=== PATIENT | female | born 1955 | race Caucasian/White ===

== ENCOUNTER → 2018-01-12 15:30 | Outpatient (CLI) | payer BC, SELFPAY ==
--- NOTE | 2018-01-12 15:30 | EMB_PTH ---
PATIENT: APARNA JASSO LOC: [facility] U#:[id number] AGE/SX: 69/F ROOM: RE01/12/[address]: Dr. Yves Soler MD : 1955 BED: DIS: SPEC #: [id number] RECD: 01/12/18 18:01 STATUS: PAULA CAIT #: [id number] DEX: 01/12/18 15:[address]: Yves Soler DEPT: SURGICAL PATHOLOGY RECD BY: Saulo Gotti ENTERED: 01/13/18 11:41 SP TYPE: ENDOM BX/C OTHR DR: Dr. Naveed Stokes MD Tissues: A - Endometrium, NOS B - Uterine cervix, NOS Procedures: Surgery Specimen Level IV HEADER OPERATION: Endometrial biopsy, cervical polyp removal PRE-OP DIAGNOSIS: Post menopausal bleeding TISSUE SUBMITTED: A - Endometrial biopsy, B - Cervical polyp MICROSCOPIC DIAGNOSIS A. Endometrial biopsy: Focal simple endometrial hyperplasia without atypia. B. Cervical polyp, biopsy: Fragments of benign inflamed endocervical polyp, blood and mucous. QUIN:piyush 01/14/18 MICROSCOPIC DESCRIPTION Slides are reviewed. GROSS DESCRIPTION A - Received in fixative is one container labeled with the patient's name and designated EM biopsy. The specimen consists of multiple fragments of hemorrhagic soft tissue mixed with mucoid tissue that in aggregate measure 3 x 2.5 x 0.3 cm. The specimen is totally submitted in one cassette. B - Received in fixative is one container labeled with the patient's name and designated cervical polyp. The specimen consists of a piece of polypoid tissue mixed with lindo mucoid tissue measuring in aggregate 3 x 2.5 x 0.3 cm. The specimen is totally submitted in one cassette. / QUIN:piyush 01/13/18 TC:5 CPT: 15448 x2
== END ==
PROVIDERS: Family Provider Family Medicine; PCP Family Medicine; Referring Provider Obstetrics & Gynecology; Visit Provider Obstetrics & Gynecology
DX: N84.1 Polyp of cervix uteri (principal)
CPT/HCPCS: 88305

== ENCOUNTER 2018-03-23 05:42 | Day surgery (SDC) | payer BC, SELFPAY ==
--- NOTE | 2018-03-16 15:29 | EKG12_ITS ---
Test Reason : PRE OP Blood Pressure : / mmHG Vent. Rate : 069 BPM Atrial Rate : 069 BPM P-R Int : 160 ms QRS Dur : 068 ms QT Int : 382 ms P-R-T Axes : 034 049 039 degrees QTc Int : 409 ms Normal sinus rhythm Low voltage QRS Borderline ECG Confirmed by KRISTYN DUNLAP, BROOKLYNN ([id number]), medical transcription editor RADHA WELDON ([id number]) on 03/18/2018 1:52:48 PM Referred By: Yves Soler Confirmed By:BROOKLYNN SIMONS MD
[2018-03-16 17:08] LABS: Absolute Lymphocyte Count 1.97 X10^3/ul (0.83-4.51); Absolute Neutrophil Count 5.9 X10^3/uL (2.0-7.7); Basophil# 0.02 X10^3/uL; Basophil% 0.2 % (0-1); Eosinophil# 0.17 X10^3/uL; Hematocrit 42.4 % (37-47); Hemoglobin 13.8 g/dl (12.0-15.0); Lymphocyte # 1.97 X10^3/ul (4.0); Lymphocyte % 22.9 % (19-41); Mean Corp Hgb Conc 32.5 g/gl (32-36); Mean Corpuscular Volume 98.4 fL (81-99); Mean Platelet Vol. 9.1 fl (6.2-12.0); Monocyte# 0.52 X10^3/uL; Monocyte% 6.1 % (0-10); Neutrophil # 5.88 X10^3/uL (2.7-7.7); Neutrophil % 68.5 % (47-70); Platelet Count 358 K/mm3 (150-450); RBC Distribution Width CV 14.1 % (11.6-14.6); RBC Distribution Width SD 49.1 fl (35.1-43.9); Red Blood Count 4.31 M/mm3 (4.2-5.4); White Blood Count 8.6 K/mm3 (4.4-11.0)
[2018-03-16 17:13] LABS: POSITIVE COUNT NO; POSITIVE DIFFERENTIAL NO; POSITIVE MORPHOLOGY NO
[2018-03-16 17:27] LABS: Prothrombin Time (Protime)PT. 13.1 SECONDS (11.7-14.9)
[2018-03-16 17:28] LABS: Partial Thromboplast Time 34.3 Seconds (24.1-36.2)
[2018-03-16 17:48] LABS: ALB/GLOB Ratio 0.8 RATIO (0.9-2.4); AST(SGOT) 19 U/L (15-37); Alanine Aminotransfer ALT/SGPT 22 U/L (13-56); Albumin, Serum 3.1 g/dL (3.2-5.0); Alkaline Phosphatase 104 U/L (45-117); Anion Gap 7 (5-15); BUN 13 mg/dL (7-18); BUN/Creat Ratio 20.9 RATIO (10-20); Calcium,Total 8.9 mg/dL (8.5-10.1); Chloride 105 mmol/L (98-107); Creatinine, Serum 0.62 mg/dL (0.55-1.02); EST Glomerular Filtration Rate 102 mL/min (>60); Est Glom Filt Rate - Afr Amer 124 mL/min (>60); Glucose 90 mg/dL (74-106); Potassium 4.2 mmol/L (3.5-5.1); Protein, Total 7.1 g/dL (6.4-8.2); Sodium Level 141 mmol/L (136-145)
--- NOTE | 2018-03-22 19:24 | PCM.HP.BLA ---
History and Physical Date of Admission: 03/23/18 Surgical History and Physical Rosio Morales, a 62 year old female 5 0 0 0 5, presents for RAVH/BSO on March 23, 2018 at 8:30. 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 RA Stokes for PMB. 62 y.o. G 5 P 5 post-menopausal sexually inactive female reporting that she has been having problems with spotting periodically x 2 years and upon exam with her last pap screening, PCP thought he saw something on her cervix. Patient states that she has stopped her xeljanz and preservision as recommended 2 wks prior to surgery. PMB which began 2 years. Rosio claims it started gradually and has been present 2 years. It occurs intermittantly. It is located in the cervix. Rosio characterizes the quality spotting. Severity is moderate and not improving and very concerned; Additional comments are: EMBx simple EM hyperplasia without atypia; thick EM on u/s. MEDICATIONS HISTORY: Patient is also takin. folic acid 1 mg tablet, One pill by mouth once a day 2. lisinopril 10 mg tablet, One pill by mouth once a day 3. methotrexate sodium 2.5 mg tablet, Eight po once weekly 4. PreserVision AREDS 14,320 unit-226 mg-200 unit capsule, One pill by mouth twice a day 5. Xeljanz XR 11 mg tablet,extended release, One pill by mouth once a day ALLERGIES: Sulfa (Sulfonamide Antibiotics), Hives and/or rash, Amoxicillin and Generalized rash Infections - Chicken pox, Mumps and Measles Illnesses - Macarodegeneration, RA, HTN Accidents - None Hospitalizations - see surgery Review of Systems: GENERAL - Denies fever, or chills SKIN - Denies skin changes EYES - wears eye glasses and wears contact lenses EARS - Denies difficulty hearing NOSE - Denies nasal congestion or bleeding MOUTH - Denies sore throat or difficulty swallowing NECK - Denies pain or swelling RESPIRATORY - Denies shortness of breath or wheezing CARDIOVASCULAR - Denies palpitations or chest pain GASTROINTESTINAL - Denies nausea, vomiting, diarrhea, constipation GENITOURINARY - Denies dysuria, frequency of urination, incontinence of urine MUSCULOSKELETAL - Denies joint or muscle pain NEUROLOGICAL - Denies localized numbness or weakness PSYCHIATRIC - Denies depression or anxiety ENDOCRINE - Denies heat or cold intolerance, weight loss or gain HEMATO-IMMUNOLOGIC - Denies excesive bleeding with cuts SOCIAL HISTORY: Alcohol Use - None Smoking - Never Diet - no special diet Lifestyle - moderate stress lifestyle and Exercise - active work Seat Belt Use - always 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 cholecystectomy, 1993 ; Myron Sheriff - PHYSICAL EXAM BP- 124/76 Sitting, Right arm, large cuff Temp- 98.0 Taken Orally Weight- 297.96113 lbs Height- 66 inch BMI:48.04 CONSTITUTIONAL - NAD, well nourished, and well developed SKIN - No rash, lesions, or ulcers HEENT - Normocephalic, PERRLA, EOMI NECK - No nodes, no nuchal rigidity and thyroid normal size and texture LYMPH NODES - Palpation of lymph nodes in neck and groins within normal limits LUNGS - CTA x2 without wheezes, crackles or rales CARDIAC - Regular rate and rhythm without rubs, murmurs, or gallops BREAST - No dominant masses, no tenderness, no axillary adenopathy, no nipple discharge, no skin changes ABDOMEN - Without hepatosplenomegaly, distention, masses, rebound, or guarding; normal bowel sounds; no hernias EXTREMITIES - No edema or calf tenderness NEUROLOGICAL - Cranial nerves II-XII grossly intact PSYCHIATRIC - A and O to time, place, person, mood and affect DETAILED PELVIC EXAM External Genitial Vagina - non-tender without lesions Urethra/Urethral Meatus - non-tender Bladder - non-tender Vagina - loss of rugae Cervix - without cervical motion tenderness and has normal size and features without evident lesions and 1 cm EC polyp noted and removed with ring forceps Uterus - multiparous size 6 cm & wt 75-125 g Adnexa - clear without massess or tenderness ASSESSMENT/PLAN: 1. Postmenopausal Bleeding and Simple Endometrial Hyperplasia Without Atypia Discussed options for treatment including D and C with predatory animal exterminator Progesterone vs proceeding with RAVH/BSO. Pt desires to proceed with the hysterectomy. Discussed RBAs and all questions answered.
[2018-03-23] VITALS (11 sets, daily range): BP systolic 99–137; BP diastolic 48–68; PULSE 52–76; RESP 14–16; TEMP 36.3–37.8; O2SAT 93–98; BMI 48.0
--- NOTE | 2018-03-23 07:30 | HYST_PTH ---
PATIENT: APARNA JASSO [place] [facility] [place] U#:[id number] AGE/SX: 62/F ROOM: RE03/23/[address]: Dr. Yves Soler MD : 1955 BED: DIS: 03/24/2018 SPEC #: [id number] RECD: 03/23/18 11:41 STATUS: PAULA CHAVIRA #: [id number] DEX: 03/23/18 07:[address]: Yves Soler DEPT: SURGICAL PATHOLOGY RECD BY: Troy Dalton ENTERED: 03/23/18 11:41 SP TYPE: HYSTERECT OTHR DR: Dr. Naveed Stokes MD Tissues: Uterus, NOS Procedures: Surgery Specimen Level V HEADER OPERATION: Robotic assisted vaginal hysterectomy, bilateral salpingo-oophorectomy PRE-OP DIAGNOSIS: Postmenopausal bleeding and simple endometrial hyperplasia without atypia TISSUE SUBMITTED: Uterus, cervix, bilateral fallopian tubes and bilateral ovaries MICROSCOPIC DIAGNOSIS Uterus, hysterectomy: Cervix - nabothian cysts, squamous metaplasia and mild chronic inflammation. Endometrium - endometrial polyps with simple cystic and focal complex hyperplasia without atypia. [place] endometrium with simple and focal complex hyperplasia without atypia. Myometrium - microscopic leiomyoma. Right ovary - corpora albicantia. Right fallopian tube - benign paratubal cyst. Left ovary - corpora albicantia. Left fallopian tube - no pathologic change. AM:piyush 03/24/18 MICROSCOPIC DESCRIPTION Slides are reviewed. GROSS DESCRIPTION Received in fixative is one container labeled with the patient's name and designated uterus. The specimen consists of a uterus with attached right and left fallopian tubes and right and left ovaries. The uterus with cervix measures 11 x 7 x 5 cm and weighs 170 gm. The ectocervix is unremarkable. The cervical os is oval in contour. The endocervical canal measures 3.7 cm in length and is grossly unremarkable. The triangular endometrial cavity measures 5 x 4.5 cm. The velvety, light lindo endometrium measures up to 0.2 cm in thickness. The anterior endometrial wall contains a reddish-lindo polyp measuring 2 x 1 x 0.3 cm. The posterior endometrial wall contains three polyps ranging in size from 1.5 to 4 cm. The myometrium beneath the polyp is not indurated. The myometrium measures 1.7 cm in average thickness and is free of mass lesions. The right ovary is pink-yellow and has a crinkled external surface and measures 3.5 x 2 x 1.2 cm. Serial sections of the ovary do not reveal mass lesions. The adjacent fallopian tube measures 6 cm in length and 0.4 cm in average diameter. A normal fimbriated end is identified. No tubo-ovarian adhesions are present. The left ovary is similar in appearance to the right ovary and measures 3 x 1.5 x 1.2 cm. Serial sections do not reveal mass lesions. The left fallopian tube is similar in appearance to right tube and measures 7 cm in length and 0.5 cm in average diameter. Alumni Relations Officer sections are submitted in 15 cassettes as follows: 1 - anterior and posterior cervix, anterior cervix inked black, 2 - anterior endometrial wall polyp, 3 - anterior endometrium, 4-6 - remainder of anterior endometrium and adjacent myometrium, 7 - one posterior endometrial wall polyp, 8 - one posterior endometrial wall polyp, 9 - one posterior endometrial wall polyp, 10 - posterior myometrial wall, full thickness, 11 & 12 - remainder of posterior endometrium and adjacent myometrium, 13 - right fallopian tube and ovary, 14 - left fallopian tube and ovary, 15 - remainder of posterior wall polyp. / AM:piyush 03/23/18 TC:5 CPT: 37033
--- NOTE | 2018-03-23 07:44 | OP.PCM_ITS ---
Report of Operation Date of Procedure: 03/23/18 Pre-Operative Diagnosis: Simple Endometrial Hyperplasia Post-Operative Diagnosis: Simple Endometrial Hyperplasia Surgery/Procedure Performed:: Robotic Assisted Vaginal Hysterectomy and Bilateral Salpingo-Oophrectomy district manager: Tony Zee district manager: Anel Plummer Type of Anesthesia:: General - Endotracheal Anesthesiologist: Sander Montoya Drains: Allen to straight drain Estimated Blood Loss (mL): Minimal Fluids Replaced: Crystalloid Description of Procedure: Surgeon: Yves Soler MD, FACOG Indication: This is a 62 year old patient who has been having problems with postmenopausal bleeding and simple endometrial hyperplasia. Conservative measures have not been helpful. The patient has been counseled regarding the risks, benefits and alternatives of this procedure including the possibility of bleeding, infection, and injury to surrounding structures such as bowel bladder and all questions were answered. She understands that is BSO is needed that she will need to be on HRT for an indefinite period of time. Procedure: Pt taken to the operating room where after induction of general anesthesia the patient was prepped and draped in the usual sterile fashion and placed on a non-slip Huggy-u-vac device. Trendendelenburg test was satisfactory. Bladder was drained of urine with a Allen catheter which was left in place. Anterior cervix grasped and cervix was dilated to about 3-4 mm. Uterus sounded to 8 cms. 0-Vicryl suture was placed at the 3:00 and 9:00 position of the cervix. A [facility] [employer] uterine manipulator device was then placed in the uterus and attention was turned to the laparoscopic portion of the procedure. Ropivocaine 0.5% was injected approximately 2-3 cm superior to the umbilicus and an 8 mm robotic camera port was introduced directly with intraperitoneal placement confirmed with insufflation. 8 mm robotic side ports were introduced under direct visualization approximately 11-12 cm lateral and 2 cm inferior to the umbilical port. A 5 mm left upper quadrant port was introduced and airseal insufflation with CO2 was started. The above findings were noted. Robot was docked without difficulty and attention turned to the robotic portion of the procedure. Approximately 30 cc of Ropivicaine was used. Bilateral infundibulocal ligaments/mesosalpinx were ligated with 35 cain bipolar coagulation to the level of the round ligament. The posterior aspect of the cervix was identified and then opened for about 1 cm using 25 watt monopolar cautery identifying the V-care device which had been placed vaginally. Bladder flap was opened and divided to the level of the round ligaments using monopolar cautery. Progressive bites were then ligated on each side of the cervix with 35 cain bipolar cautery to the uterine arteries. The anterior vaginal mucosa was then entered and cervix circumscribed with monopolar cautery. Uterus and attached ovaries and tubes were then removed through the vagina. Vaginal cuff was closed first with 0-Vicryl Gretchen stitches placed at each angle followed by closure of the mid-cuff with 0-Monocryl V-lock suture in two layers. Pelvis was copiously irrigated with saline and approximately 500 cc of clear yellow urine was noted. Robot was undocked and trocars were removed with as much gas as possible. Incisions were closed with 4-0 Monocryl subcuticular sutures and incisions covered with steri-strips and opsite dressing. The patient tolerated the procedure well and was taken to the recovery room in satisfactory condition. Sponge, instruments and needle counts were all correct. There were no apparent complications of the surgery. Cefotan 3 gms IV was given prior to the procedure. Specimen to Pathology: Uterus and bilateral tubes and ovaries Grafts/Implants Used: None - Complications None - Admit VTE Documentation VTE Present on Admission: Yes VTE Mechan Device Prophylaxis: SCD's VTE Pharm Prophylaxis ordered?: Yes
--- NOTE | 2018-03-23 07:45 | DCINST_ITS ---
Discharge Diet: No Restrictions Discharge Activity: Return to Normal Activity, May Not Drive - while taking narcotic pain medications., May Shower May resume sexual activity in: 6-8 weeks Call your doctor if your incision/area has: Continuous Slow Oozing, Sudden Increased Bleeding, Increased Pain/ Swelling, Increased Redness, Foul Smelling Discharge Call your doctor if you observe: Fever of 101 or Higher, Inability to urinate, Inability to have a bowel movement, Using more than one pad per hour Allergies/Adverse Reactions: Allergies amoxicillin Allergy (Verified 03/16/18 08:55) Rash Sulfa (Sulfonamide Antibiotics) Allergy (Verified 03/16/18 08:55) Hives latex Adverse Reaction (Verified 03/16/18 08:55) Rash Medications to take at Discharge Folic Acid 1 mg PO DAILY 03/16/18 Lisinopril [Zestril] 10 mg PO DAILY 03/16/18 Methotrexate Sodium [Methotrexate] 1 tab PO DAILY 03/16/18 Docusate Sodium [Colace] 100 mg PO BID PRN PRN #60 cap 03/23/18 Oxycodone [Oxyir] 5 mg PO Q6H PRN PRN 7 Days #20 tab 03/23/18 The following prescriptions were given: Oxycodone [Oxyir] 5 mg PO Q6H PRN PRN 7 Days #20 tab PRN Reason: Severe Pain (6-12/03) Docusate Sodium [Colace] 100 mg PO BID PRN PRN #60 cap PRN Reason: Constipation Primary Care Physician: Naveed Stokes MD [Primary Care Provider] - Test Results: Test results from this visit will be discussed in further detail at your follow- up appointment, if applicable. Please Follow Up With: Yves Soler MD When: 2-3 weeks
[2018-03-23] MEDS: Lubricating Jelly 60 GM Tube 30 GM TOPICAL (07:57)
[2018-03-23] MEDS: Ropivacaine 0.5% 30 ML Vial (08:15)
[2018-03-23] MEDS: Dextrose 5%-Lactated Ringers 1,000 ML 150 ML IV (13:15)
[2018-03-23] MEDS: Ketorolac 30 MG/ML Syringe IV ×2 (15:01→21:39)
[2018-03-23] MEDS: 0.9% NaCl Peripheral Flush Adult/Peds IV (15:01)
[2018-03-23] MEDS: Enoxaparin 40 MG/0.4 ML Syringe SC (17:28)
[2018-03-24 02:30] VITALS: BP 115/49; PULSE 56; RESP 16; TEMP 36.7; O2SAT 95
[2018-03-24] MEDS: Ketorolac 30 MG/ML Syringe IV (03:06)
[2018-03-24] MEDS: 0.9% NaCl Peripheral Flush Adult/Peds IV (03:06)
[2018-03-24] MEDS: Dextrose 5%-Lactated Ringers 1,000 ML 150 ML IV (03:21)
--- NOTE | 2018-03-24 05:02 | PCM.PN.OB ---
Subjective: Patient without complaints. Pain well controlled. Diet well tolerated. Denies flatus yet. Able to void on her own as catheter removed last evening. - Physical Exam Vital Signs AF, VSS Temp Pulse Resp BP Pulse Ox 98.1 F 56 L 16 115/49 L 95 03/24/18 02:30 03/24/18 02:30 03/24/18 02:30 03/24/18 02:30 03/24/18 02:30 Oxygen Delivery Method Room Air Weight: 297 lb 9.985 oz Body Mass Index (BMI) 48.0 Intake and Output for Last 24 Hours 03/22/18 03/23/18 03/24/18 23:59 23:59 23:59 Intake Total 3554 / 3554 Output Total 1915 / 1915 Balance 1639 / 1639 Wounds are clean, dry, intact. Good urine output. Hemoglobin and creatinine pending. Minimal vaginal bleeding. Medical Necessity - Tobacco Use Smoking Status: Never smoker Assessment/Plan Doing well postoperative day #1 status post robotic assisted vaginal hysterectomy and bilateral salpingo-oophorectomy. Will release to home later today if continues to tolerate diet well and hemoglobin and creatinine okay. Routine postoperative orders discussed. Follow-up in the office in approximately 2 weeks.
[2018-03-24 07:07] LABS: Hemoglobin 11.8 g/dl (12.0-15.0); Mean Corp Hgb Conc 32.8 g/gl (32-36); Mean Corpuscular Hgb 32.4 pg (27.0-32.0); Mean Corpuscular Volume 98.9 fL (81-99); Mean Platelet Vol. 8.8 fl (6.2-12.0); Platelet Count 290 K/mm3 (150-450); RBC Distribution Width CV 14.3 % (11.6-14.6); RBC Distribution Width SD 48.9 fl (35.1-43.9); Red Blood Count 3.64 M/mm3 (4.2-5.4); White Blood Count 14.1 K/mm3 (4.4-11.0)
[2018-03-24 07:08] LABS: Scan Indicated on CBC? Y/N NO
[2018-03-24 07:28] LABS: Creatinine, Serum 0.82 mg/dL (0.55-1.02); EST Glomerular Filtration Rate 74 mL/min (>60); Est Glom Filt Rate - Afr Amer 90 mL/min (>60); Estimated Creatinine Clearance 64.88 ml/min
[2018-03-24 07:52] VITALS: O2SAT 95
[2018-03-24 09:30] VITALS: BP 122/63; PULSE 72; RESP 18; TEMP 37.2; O2SAT 99
== END 2018-03-24 09:33 | disposition home or self-care (01) ==
LOC: SDC 05:42 → AC 05:42 → MS3 12:34
PROVIDERS: Family Provider Family Medicine; PCP Family Medicine; Referring Provider Obstetrics & Gynecology; Visit Provider Obstetrics & Gynecology
PROC: 0UT94ZZ Resection of Uterus, Percutaneous Endoscopic Approach (ICD-10-PCS; CPT 58552; principal; 2018-03-23 07:10)
DX: N95.0 Postmenopausal bleeding (principal); N88.8 Other specified noninflammatory disorders of cervix uteri; N84.0 Polyp of corpus uteri; N83.8 Other noninflammatory disorders of ovary, fallopian tube and broad ligament; N83.12 Corpus luteum cyst of left ovary; N83.11 Corpus luteum cyst of right ovary; D26.1 Other benign neoplasm of corpus uteri; I10 Essential (primary) hypertension
CPT/HCPCS: 00840; 58552; S2900; 36415; 80053; 82565; 85025; 85027; 85610; 85730; 86850; 86900; 88307; 93005; J7120; A4216; J2405; J3475

== ENCOUNTER → 2021-12-04 | Outpatient (CLI) | payer MEDICARE, OTHER, SELFPAY ==
[2021-12-04 15:15] LABS: Erythrocyte Sedimentation Rate 15 mm/hr (0-30)
[2021-12-04 15:16] LABS: Absolute Lymphocyte Count 1.72 X10^3/uL (0.83-4.51); Absolute Neutrophil Count 8.7 X10^3/uL (2.0-7.7); Basophil# 0.03 X10^3/uL; Basophil% 0.3 % (0-1); Eosinophil# 0.04 X10^3/uL; Eosinophils% 0.4 % (0-5); Hematocrit 44.1 % (37-47); Hemoglobin 14.1 g/dL (12.0-15.0); Lymphocyte # 1.72 X10^3/ul (0.83-4.51); Lymphocyte % 15.1 % (19-41); Mean Corpuscular Hgb 31.5 pg (27.0-32.0); Mean Corpuscular Volume 98.7 fL (81-99); Mean Platelet Vol. 8.9 fl (6.2-12.0); Monocyte# 0.72 X10^3/uL; Monocyte% 6.3 % (0-10); NRBC Flagged by Analyzer 0.4 % (0-5); Neutrophil # 8.68 X10^3/uL (2.7-7.7); Neutrophil % 76.2 % (47-70); Platelet Count 227 K/mm3 (150-450); RBC Distribution Width CV 16.9 % (11.6-14.6); RBC Distribution Width SD 61.1 fl (35.1-43.9); Red Blood Count 4.47 M/mm3 (4.2-5.4); White Blood Count 11.4 K/mm3 (4.4-11.0)
[2021-12-04 15:30] LABS: ALB/GLOB Ratio 0.7 RATIO (0.9-2.4); AST(SGOT) 13 U/L (15-37); Alanine Aminotransfer ALT/SGPT 21 U/L (13-56); Alkaline Phosphatase 112 U/L (45-117); Anion Gap 7 (5-15); BUN 16 mg/dL (7-18); BUN/Creat Ratio 21.3 RATIO (10-20); CRP 7.08 mg/L (0.0-3.0); Chloride 102 mmol/L (98-107); Creatinine, Serum 0.75 mg/dL (0.55-1.02); EST Glomerular Filtration Rate 82 mL/min (>60); Est Glom Filt Rate - Afr Amer 99 mL/min (>60); Globulin 4.3 g/dL (2.2-4.2); Glucose 91 mg/dL (74-106); Potassium 3.9 mmol/L (3.5-5.1); Protein, Total 7.3 g/dL (6.4-8.2); Sodium Level 140 mmol/L (136-145)
[2021-12-05 09:07] LABS: Hepatitis B Surface Antibody Non-Reactive; Hepatitis B Surface Antigen Non-Reactive (Nonreactive); Hepatitis C Antibody Non-Reactive (Nonreactive)
== END | disposition home or self-care (01) ==
LOC: MTLAB 11:37
PROVIDERS: PCP Family Medicine; Referring Provider Internal Medicine Rheumatology; Visit Provider Internal Medicine Rheumatology
DX: M06.09 Rheumatoid arthritis without rheumatoid factor, multiple sites (principal); Z79.899 Other long term (current) drug therapy
CPT/HCPCS: 36415; 80053; 85025; 85652; 86140; 86706; 86803; 87340